=== PATIENT | male | born 1990 | race Caucasian/White ===

== ENCOUNTER 2018-12-12 09:00 | Emergency (ER) | payer MEDICAID ==
[~2018-12-12] VITALS: Ht 160 cm; Wt 57.2 kg
[2018-12-12 09:07] VITALS: BP 139/75; PULSE 86; RESP 18; Ht 160 cm; Wt 57.2 kg
[2018-12-12] MEDS ORDERED: ONDANSETRON (ODT) 4 MG TAB ODT STA (09:27)
[2018-12-12] MEDS ORDERED: LORAZEPAM 1 MG TAB PO ONE (09:30)
--- NOTE | 2018-12-12 09:45 | ERD ---
ER Documentation Chief Complaint Chief Complaint skin feels itchy after using meth yesterday HPI 29-year-old male with no reported past medical history, history of drug abuse with recent crystal meth use yesterday who presents with complaint of anxiety and "skin crawling feeling". States he smoked meth yesterday while at home this morning with persistent anxiety. He denies suicidal ideation. Otherwise denies chest pain, shortness of breath, nausea, vomiting, diarrhea, urinary symptoms. Time examination patient appearing mildly anxious but cooperative and alert with examination and questioning. Triage vital signs normal. ROS All systems reviewed and are negative except as per history of present illness. Allergies Allergies: Coded Allergies: No Known Allergy (Unverified , 12/12/18) FmHx Family History: No diabetes, No coronary disease, No other Physical Exam Vitals Vital Signs Date Temp Pulse Resp B/P (MAP) Pulse Ox O2 O2 Flow FiO2 Time Delivery Rate 12/12/18 97.2 86 18 139/75 100 09:07 (96) Physical Exam I have reviewed the triage vital signs. Const: Well nourished, well developed, appears stated age, mildly anxious but cooperative and alert Eyes: PERRL, no conjunctival injection HENT: NCAT, Neck supple without meningismus CV: RRR, Warm, well-perfused extremities RESP: CTAB, Unlabored respiratory effort GI: soft, non-tender, non-distended, no masses MSK: No gross deformities appreciated Skin: Warm, dry. No rashes Neuro: grossly non focal Psych: Appropriate mood and affect. Results 24 hrs Current Medications Medications Dose Sig/Anai Start Time Status Last (Trade) Ordered Route PRN Stop Time Admin Dose Reason Admin Lorazepam 2 mg ONCE ONCE 12/12/18 DC 12/12/18 (Ativan) PO 09:30 12/12/18 10:02 09:31 Ondansetron 4 mg ONCE STAT 12/12/18 DC 12/12/18 HCl (Zofran ODT 09:27 12/12/18 10:02 Odt) 09:28 Procedures/MDM 29-year-old male with recent crystal meth use yesterday who presents with anxiety and formication. Low suspicion for acute withdrawal requiring emergent evaluation or treatment is ACS, PE, or any other acute cardiopulmonary process. Patient is hemodynamically stable without any any complaints or physical findings on examination. He denies suicidal or homicidal ideation. He denies any other drug use does not exhibit symptoms of other concerning drug withdrawal. No acute indication for psychiatric consultation (without SI/HI, AH/VH). Cautious return precautions discussed with full understanding. ED course: Ativan 2 mg p.o. Reassessment patient appearing much calmer and reporting improvement in symptoms, observed in the waiting area on phone and in no acute distress DISPOSITION PLAN: We discussed follow up with the patient's primary care doctor within 24 to 48 hours. Patient counseled regarding my diagnostic impression and care plan. Prior to discharge all questions answered. Pt agrees with treatment plan and understands strict return precautions. Precautionary instructions provided including instructions to return to the ER if not improving or for any worsening or changing symptoms or concerns. Disclaimer: Inadvertent spelling and grammatical errors are likely due to EHR/dictation software use and do not reflect on the overall quality of patient care. Also, please note that the electronic time recorded on this note does not necessarily reflect the actual time of the patient encounter. Departure Diagnosis: Primary Impression: Anxiety Condition: Stable Patient Instructions: Drug Abuse Referrals: [facility] YOU HAVE RECEIVED A MEDICAL SCREENING EXAM AND THE RESULTS INDICATE THAT YOU DO NOT HAVE A CONDITION THAT REQUIRES URGENT TREATMENT IN THE EMERGENCY DEPARTMENT. FURTHER EVALUATION AND TREATMENT OF YOUR CONDITION CAN WAIT UNTIL YOU ARE SEEN IN YOUR DOCTORS OFFICE WITHIN THE NEXT 1-2 DAYS. IT IS YOUR RESPONSIBILITY TO MAKE AN APPOINTMENT FOR FOLOW-UP CARE. IF YOU HAVE A PRIMARY DOCTOR --you should call your primary doctor and schedule an appointment IF YOU DO NOT HAVE A PRIMARY DOCTOR YOU CAN CALL OUR PHYSICIAN REFERRAL HOTLINE AT IF YOU CAN NOT AFFORD TO SEE A PHYSICIAN YOU CAN CHOSE FROM THE FOLLOWING FORMERLY [facility] [address] [facility] [address] [facility] [facility] [address] [facility] [address] [facility] [address] [facility]. [facility]. [address] Additional Instructions: Call your primary care doctor TOMORROW for an appointment during the next 2-3 days.See the doctor sooner or return here if your condition worsens before your appointment time. LETICIA RUTHERFORD PA-C December 12, 2018 09:44
== END 2018-12-12 10:28 | disposition home or self-care (01) ==
LOC: FTE 09:00
DX: F41.9 Anxiety disorder, unspecified (principal)
CPT/HCPCS: Z7502; Z7610; 99283